=== PATIENT | male | born 1980 | race Two or more races ===

== ENCOUNTER 2024-04-05 10:08 | Inpatient (IN) | payer MEDICAID, SELFPAY ==
--- NOTE | 2024-04-05 10:41 | XR_ITS ---
Examination: CT abdomen and pelvis without contrast. Coronal 3-D reconstructions. Sagittal 2-D reconstructions. Date and time of exam:April 05, 2024 1153 hours INDICATIONS: Generalized abdominal pain nausea vomiting and diarrhea beginning 3 days ago CTDI: vol (mGy): 9.74 DLP: (mGycm): 634 Technique: Axial images of the abdomen have been obtained, 3 mm slice thickness Intravenous contrast material has not been administered. Low dose protocols were performed. One or more of the following dose reduction techniques were used; automated exposure control, adjustment of the mA and/or KV according to patient size, use of iterative reconstruction technique. Findings: No focal liver or splenic lesions No gallstones No pancreatic mass No renal or ureteral calculi Air distended colon with no pericecal inflammatory change Multiple fluid distended small bowel loops No diverticulitis Contracted urinary bladder Moderate osteopenia IMPRESSION: Colonic ileus Multiple fluid distended small bowel loops, consider early small bowel obstruction, recommend Gastrografin small bowel series follow-up
--- NOTE | 2024-04-05 10:42 | PD.EDRME ---
Rapid Medical Screening Exam RME Arrival date/time: 04/05/24 10:08 43-year-old male with no known medical history presents to the emergency room with a chief complaint of 10 out of 10 generalized abdominal pain and tenderness, nausea, vomiting, diarrhea x 2 days I have greeted and performed a focused initial assessment of this patient. A comprehensive ED assessment and evaluation of the patient, analysis of all test results, and completion of the medical decision making process will be conducted by additional ED providers. Chief Complaint: Abdominal Pain Vital signs reviewed by provider: Yes
[2024-04-05 10:54] VITALS: BP 132/83; PULSE 69; RESP 18; TEMP 36.6; O2SAT 100; BMI 31.6
[2024-04-05 11:26] LABS: Basophils % (Auto) 0 % (0-2.5); Eosinophils # (Auto) 0.1 Thou/mm3 (0.0-0.5); Eosinophils % (Auto) 1 % (0-10); Hematocrit 44.5 % (41.0-53.0); Immature Granulocytes % (Auto) 0 % (0-0); Immature Granulocytes Auto 0.02 Thou/mm3 (0.00-0.00); Lymphocytes # (Auto) 1.2 Thou/mm3 (1.0-4.8); Lymphocytes % (Auto) 19 % (10-50); Mean Corpuscular HGB Conc 33.7 g/dl (31.0-37.0); Mean Corpuscular Hemoglobin 30.6 pg (25.0-35.0); Mean Corpuscular Volume 91 fL (80-100); Monocytes # (Auto) 0.3 Thou/mm3 (0.0-0.8); Monocytes % (Auto) 5 % (0-12); Neutrophils # (Auto) 4.8 Thou/mm3 (1.8-7.7); Neutrophils % (Auto) 75 % (37-80); Nucleated Red Blood Cell % 0 /100 WBC (0); Platelet Count 242 Thou/mm3 (140-440); RDW Standard Deviation 43.5 fL (35.1-43.9); White Blood Count 6.4 Thou/mm3 (3.8-10.6)
[2024-04-05 11:45] LABS: Alanine Aminotransferase 21 U/L (10-49); Albumin, Serum 5.1 gm/dL (3.5-5.0); Albumin/Globulin Ratio 1.9 (1.2-2.2); Alkaline Phosphatase 86 U/L (46-116); Anion Gap 7 (7-16); Aspartate Amino Transferase 14 U/L (0-34); BUN/Creatinine Ratio 16 Ratio (12-20); Bilirubin,Total 0.6 mg/dL (0.3-1.2); Blood Urea Nitrogen 13 mg/dL (9-23); Calcium 9.7 mg/dL (8.3-10.6); Calcium (Corrected) 9.7 mg/dL (8.5-10.1); Carbon Dioxide 28.8 mMol/L (20.0-31.0); Chloride 102 mMol/L (98-107); Creatinine (Component) 0.8 mg/dL (0.6-1.3); Estimated Creatinine Clearance 131.3 mL/min (>60); Globulin 2.7 gm/dL (2.3-3.5); Glucose 117 mg/dL (74-106); Lipase 26 U/L (12-53); Osmolality,Calculated 276 (275-295); Potassium 3.8 mMol/L (3.4-5.1); Sodium 138 mMol/L (136-145); Total Protein 7.8 gm/dL (5.7-8.2); eGFR > 60 See Note
[2024-04-05] MEDS: ONDANSETRON ODT 4 MG TABRAP PO (11:46)
[2024-04-05] MEDS: HYDROcodone/APAP 5/325 TABLET 1 TAB PO (11:47)
[2024-04-05 14:29] LABS: Collection Type, Urine Clean Catch
[2024-04-05 14:46] LABS: Bilirubin,Urine Negative (Negative); Blood,Urine Negative (Negative); Clarity,Urine Clear (Clear/Hazy); Color,Urine Yellow (Lt Yel-Yel); Glucose, Urine Trace (Negative); Ketones,Urine Trace (Negative); Leukocyte Esterase,Urine Negative (Negative); Nitrite,Urine Negative (Negative); Protein,Urine 1+ (Neg - Trace); RBC,Urine 3 /hpf (0-3); Specific Gravity,Urine 1.042 (1.001-1.035); Squamous Epithelial Cell,Urine 1 /hpf (0-5); WBC,Urine 4 /hpf (0-5)
[2024-04-05] MEDS: SODIUM CHLORIDE 0.9% 1000 ML 1,000 ML 999 ML IV (15:55)
[2024-04-05] MEDS: HYDROmorphone INJ 2 MG/ML VIAL 1 MG IVP (15:55)
[2024-04-05] MEDS: KETOROLAC INJ 30 MG/ML VIAL IVP (15:56)
[2024-04-05] MEDS: ONDANSETRON INJ 2 MG/ML INJ 2 ML 4 MG IV (15:56)
[2024-04-05 15:58] VITALS: BP 155/93; PULSE 58; RESP 16; TEMP 36.9; O2SAT 100
--- NOTE | 2024-04-05 16:18 | PD.SURCONS ---
HPI Consult details Consult date: 04/05/24 Reason for consultation narrative: Patient was seen in consultation for bowel obstruction at the request of the ER physician History of present illness: History of present illness revealed that the patient has had vomiting and severe diarrhea for the past 3 days and generalized abdominal pain. He even had 2 bowel movements this morning. Meds Home Medications and Allergies Home Medications ?Medication ?Instructions ?Recorded ?Confirmed ?Type albuterol sulfate 90 mcg/actuation 2 puff inhalation Q6H PRN 08/26/22 02/08/23 History aerosol inhaler Shortness Of Breath Allergies Allergy/AdvReac Type Severity Reaction Status Date / Time cashew nut Allergy Severe HIVES Verified 08/26/22 11:53 egg Allergy Severe HIVES Verified 08/26/22 11:53 pistachio nut Allergy Severe HIVES Verified 08/26/22 11:53 Exam Vital Signs Temp Pulse Resp BP Pulse Ox O2 Del Method 98.5 F 58 L 16 155/93 H 100 Room Air 04/05/24 15:58 04/05/24 15:58 04/05/24 15:58 04/05/24 15:58 04/05/24 15:58 04/05/24 15:58 Routine Abdominal Exam Comments: Abdominal examination showed no distention. Results Results: Laboratory Laboratory Narrative: Laboratory results are within normal limits Results: Imaging Imaging narrative: CT scan showed a dilated loops of small bowel as well as large amounts of gas in the anterior colon which was read as colonic ileus Assessment & Plan Additional Assessment Additional comments: Impression: The patient does not have any bowel obstruction. He seems to be having gastroenteritis Plan Plan we shall treat him as gastroenteritis but no surgical condition exist now
--- NOTE | 2024-04-05 16:47 | EDNOTE_ITS ---
ED Abdominal Pain RME/HPI General Chief Complaint: Abdominal Pain Stated complaint: ABD PAIN X3 DAYS, N/V/D Time seen by provider: 04/05/24 11:34 Arrival date/time: 04/05/24 10:08 RME / HPI RME / HPI narrative: 04/05/24 10:08 43-year-old male with no known medical history presents to the emergency room with a chief complaint of 10 out of 10 generalized abdominal pain and tenderness, nausea, vomiting x 2 days I have greeted and performed a focused initial assessment of this patient. A comprehensive ED assessment and evaluation of the patient, analysis of all test results, and completion of the medical decision making process will be conducted by additional ED providers. This section includes all my notes and documentations, including HPI, PE, and ED course.? Srinivas Cox MD HPI: 43-year-old male here with about 24-hour history of severe abdominal pain and vomiting. No hematemesis or coffee-ground emesis. No diarrhea. With decreased bowel movements and decreased bowel sounds. Had appendectomy in the past. No obvious fever. No other complaints. ROS: All negative except as documented in HPI. Physical Exam: General:? Alert and oriented.? In severe pain. Eyes:? Conjunctivae and lids clear.? ENT:? No nasal congestion.? Neck:? Supple.? Heart:? RRR.? Lungs:? No respiratory distress.? Good air movement.? No rhonchi, wheezing, rales.?? Abdomen: Equivocal distention and guarding and rigidity. Decreased bowel sounds. Back: No CVA tenderness. Skin:? Warm and dry.?? Neuro:? Alert and oriented X 3.?? I reviewed all diagnostic test results. My review of the abdominal CT report is SBO. Blood tests and urine tests?unremarkable. At this point, diagnoses include?small bowel obstruction Treatment here included?IV fluid and Zofran and Dilaudid. Significant improvement not noted. I discussed the case with our surgeon and our hospitalist.? About the presentation and exam and diagnostics and treatments here.? And need of further care in the hospital.? Will accept the patient. Srinivas Cox MD Related Data Home Medications ?Medication ?Instructions ?Recorded ?Confirmed albuterol sulfate 90 mcg/actuation 2 puff inhalation Q6H PRN 08/26/22 02/08/23 aerosol inhaler Shortness Of Breath Previous Rx's ?Medication ?Instructions ?Recorded albuterol sulfate 90 mcg/actuation 2 inh inhalation QID PRN shortness 08/26/22 aerosol inhaler of breath or wheezing #8.5 grams montelukast 10 mg tablet 10 mg PO QHS 30 days #30 tabs 08/26/22 (Singulair) Allergies Allergy/AdvReac Type Severity Reaction Status Date / Time cashew nut Allergy Severe HIVES Verified 08/26/22 11:53 egg Allergy Severe HIVES Verified 08/26/22 11:53 pistachio nut Allergy Severe HIVES Verified 08/26/22 11:53 Review of Systems Review of Systems Systems Reviewed: All systems reviewed, normal except as documented Past Medical History Past Medical History CARDIAC: Positive Hypertension; Negative Congestive Heart Failure RESPIRATORY: Positive Asthma; Negative Chronic Obstructive Pulmonary Disease (COPD) GENITOURINARY: Negative Renal Disease ENDOCRINE: Negative Diabetes Mellitus Type 1 or Diabetes Mellitus Type 2 PSYCHO/SOCIAL: Positive Anxiety Social History SMOKING STATUS: Never smoker ED Exam Narrative Physical exam: As noted in HPI Course Quality Measures none Orders Category Date Time Status COVID-19 Screening Questionnaire NOW Care 04/05/24 14:51 Active Decision to Admit X1 Care 04/05/24 14:51 Completed NPO NOW Care 04/05/24 14:23 Active Saline [Insert IV] NOW Care 04/05/24 14:23 Active Consult to General Surgery Stat Cons 04/05/24 14:21 Ordered Diet NPO (NOW) Diet 04/05/24 14:[address] abdomen pelvis wo con Stat Exams 04/05/24 10:41 Completed CBC Stat Lab 04/05/24 10:56 Completed CMP [Comprehensive Metabolic Panel] Stat Lab 04/05/24 10:56 Completed Lipase Stat Lab 04/05/24 10:56 Completed UA [Urinalysis] Stat Lab 04/05/24 13:58 Completed Urine Culture Stat Lab 04/05/24 13:58 Received HYDROcodone*/APAP 5/325 [[place] 5/325] Med 04/05/24 10:41 Discontinued 1 tab PO X1 ONE HYDROmorphone INJ [Dilaudid Inj] Med 04/05/24 14:23 Discontinued 1 mg IVP X1 ONE Ketorolac Inj [Toradol Inj] Med 04/05/24 14:23 Discontinued 30 mg IVP X1 ONE Ondansetron Inj [Zofran Inj] Med 04/05/24 14:23 Discontinued 4 mg IV X1 ONE Ondansetron Odt [Zofran Odt] Med 04/05/24 10:41 Discontinued 4 mg PO X1 ONE Sodium Chloride 0.9% 1000 ml [Ns] 1,000 ml Med 04/05/24 14:23 Discontinued IV 999 mls/hr Vital Signs Vital signs: Vital Signs Temperature 97.9 F 04/05/24 10:54 Pulse Rate 69 04/05/24 10:54 Respiratory Rate 18 04/05/24 10:54 Blood Pressure 132/83 H 04/05/24 10:54 Pulse Oximetry (%) 100 04/05/24 10:54 Oxygen Delivery Method Room Air 04/05/24 10:54 Pulse ox is 100% on room air which is adequate. Abdominal Pain MDM Patient data External records reviewed:: [facility] previous records (I reviewed admission on 02/08/2023 through 02/10/2023) Clinical information provided by:: patient Social determinants that could affect healthcare access:: none Patient has the following chronic illnesses:: Hypertension, asthma How is presenting disease/condition affected by chronic disease/condition?: uneffected by Evaluation data The following diagnostics were reviewed and interpreted by me:: lab results and radiology exam(s) Lab and/or radiology exams considered but not ordered:: None Interpretation Summary: SBO Medications / Prescriptions Medications or Prescriptions considered but not ordered:: None Medication administrations:: Medication Administration History Acetaminophen (Acetaminophen 325 Mg Tablet) 650 mg PO Q6H PRN PRN Reason: Fever >101.5 Stop: 05/05/24 15:34 Heparin Sodium (Porcine) (Heparin Sod Inj 5000 Unit/Ml Vial) 5,000 unit SC Q8HR [facility] Stop: 04/19/24 21:59 Sodium Chloride (Ns) 1,000 mls @ 120 mls/hr IV .Q8H20M [facility] Stop: 05/05/24 15:44 Last Admin: 04/05/24 17:09 Dose: 120 mls/hr Documented By: Ondansetron HCl (Ondansetron Inj 2 Mg/Ml Inj 2 Ml) 4 mg IV Q4H PRN; Protocol PRN Reason: NAUSEA OR VOMITING Stop: 05/05/24 15:34 Oxycodone/Acetaminophen (Oxycodone/Apap 5/325 Tablet) 1 tab PO Q6H PRN PRN Reason: Pain Scale 4-6 (Moderate) Stop: 04/10/24 15:34 Discontinued Medications Hydrocodone Bitart/Acetaminophen (Hydrocodone/Apap 5/325 Tablet) 1 tab PO X1 ONE Stop: 04/05/24 10:42 Last Admin: 04/05/24 11:47 Dose: 1 tab Documented By: Hydromorphone HCl (Hydromorphone Inj 2 Mg/Ml Vial) 1 mg IVP X1 ONE Stop: 04/05/24 14:24 Last Admin: 04/05/24 15:55 Dose: 1 mg Documented By: LISBETH Sodium Chloride (Ns) 1,000 mls @ 999 mls/hr IV .Q1H1M ONE Stop: 04/05/24 15:23 Last Infusion: 04/05/24 17:12 Dose: Infused Documented By: Admin: 04/05/24 15:55 Dose: 999 mls/hr Documented By: LISBETH Ketorolac Tromethamine (Ketorolac Inj 30 Mg/Ml Vial) 30 mg IVP X1 ONE Stop: 04/05/24 14:24 Last Admin: 04/05/24 15:56 Dose: 30 mg Documented By: LISBETH Ondansetron HCl (Ondansetron Odt 4 Mg Tabrap) 4 mg PO X1 ONE; Protocol Stop: 04/05/24 10:42 Last Admin: 04/05/24 11:46 Dose: 4 mg Documented By: Ondansetron HCl (Ondansetron Inj 2 Mg/Ml Inj 2 Ml) 4 mg IV X1 ONE; Protocol Stop: 04/05/24 14:24 Last Admin: 04/05/24 15:56 Dose: 4 mg Documented By: LISBETH Patient given IV fluids, zofran, toradol, dilaudid, norco in the ER. Consultations Consultation(s) initiated? (list below): Yes Consultation #1 (Physician, Specialty, Details): I spoke with general surgeon Dr. Harkins. Discussed patients PMHx, HPI, ED course, exam findings, labs, and radiology results. Will come evaluate the patient in the ED. Consultation #2 (Physician, Specialty, Details): I spoke with resident Dr. Villagomez working with Dr. Morris regarding admission. Discussed patients PMHx, HPI, ED course, exam findings, labs, and radiology results. The hospitalist agree to accept the patient for admission. Diagnosis Differential diagnosis abdominal pain: calculus of kidney, constipation, diverticulitis, gastroenteritis, pancreatitis and small bowel obstruction Most likely diagnosis given after review of the tests above:: Small bowel obstruction Admission Indicated Admission indicated?: indicated Explain why admission is indicated or not indicated:: SBO Admission Request Was there a request for admission?: Yes Admission Attestation Admission request attestation: Discussed case with Hospitalist service regarding admission. Discussed patients ED course, exam findings, labs, and radiology results. The Hospitalist [agrees,declines] to accept the patient for admission. Disposition Plan Disposition Plan: Admit Discharge Plan Plan Patient Disposition: Admit Acute Care w/in Hospital Problem List Clinical Impression: SBO (small bowel obstruction)
[2024-04-05] MEDS: SODIUM CHLORIDE 0.9% 1000 ML 1,000 ML 120 ML IV ×2 (17:09→22:20)
[2024-04-05 17:48] VITALS: BMI 31.6
--- NOTE | 2024-04-05 17:48 | ESHP_ITS ---
Documentation for date of: 04/05/24 [facility] History of Present Illness History of present illness: Mr. Barnhart is a 43-year-old male with past medical history significant for asthma and remote history of hypertension which is controlled by dietary and lifestyle modification presents to the ED complaining of nausea vomiting and abdominal pain. 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 Patient states that for the last 3 days he has been having 4-5 episodes of watery diarrhea with abdominal cramping and is passing gas. Patient describes this pain to be diffuse all over his abdomen cramping-like rating it 7 out of 10 . patient states he is also experiencing nausea and vomiting 3 times a day and last time vomited this morning. Patient denies any similar episodes previously, denies eating any unusual new foods, denies any travel history and denies any recent sick contact. Patient states that he is a regular meth user and uses meth several times a day. His last meth was used 2 days ago and his preferred method is smoking meth. ED course: Initial vitals are stable CBC, CMP and urine analysis are unremarkable. Images: CT of abdomen/pelvis shows Multiple fluid distended small bowel loops In the ED patient received [place] x 1, Dilaudid x 1, Toradol x 1 and Zofran x 1 PMH: Asthma PSH: Appendectomy SH: Denies tobacco, smokes marijuana every other day, smokes methamphetamine daily several times a day, denies cocaine and denies alcohol Home meds: Albuterol inhaler which he has been using daily Review of Systems Review of Systems Systems Reviewed: All systems reviewed, normal except as documented Exam Vital Signs Temp Pulse Resp BP Pulse Ox O2 Del Method 98.5 F 58 L 16 155/93 H 100 Room Air 04/05/24 15:58 04/05/24 15:58 04/05/24 15:58 04/05/24 15:58 04/05/24 15:58 04/05/24 15:58 Narrative Exam GENERAL: A&Ox3 . Awake, Not in acute distress NEURO: no focal neurological deficits HEENT: Atraumatic, Normocephalic. mucous membranes moist. Eyes open, symmetrical, & clear HEART: Normal Heart Sounds LUNGS: Clear to auscultation with no wheezing or crackles. ABDOMEN: soft, favian distended, favian diffuse tenderness to palpation, bowel sounds heard, no guarding SKIN: No Rash or ecchymoses EXTREMITIES: No edema, tenderness, able to move all 4 extremities, pedal pulses palpated Results: Labs 04/06/24 04:30 04/06/24 04:30 Labs: Short CBC 04/05/24 Range/Units 10:56 WBC 6.4 (3.8-10.6) Thou/mm3 Hgb 15.0 (13.5-16.0) g/dL Hct 44.5 (41.0-53.0) % Plt Count 242 (140-440) Thou/mm3 BMP 04/05/24 10:56 Sodium 138 Potassium 3.8 Chloride 102 Carbon Dioxide 28.8 BUN 13 Creatinine 0.8 Glucose 117 H Calcium 9.7 Liver Function 04/05/24 Range/Units 10:56 Total Bilirubin 0.6 (0.3-1.2) mg/dL AST 14 (0-34) U/L ALT 21 (10-49) U/L Alkaline Phosphatase 86 (46-116) U/L Albumin 5.1 H (3.5-5.0) gm/dL Urine 04/05/24 Range/Units 13:58 Urine Color Yellow (Lt Yel-Yel) Urine Clarity Clear (Clear/Hazy) Urine pH 6.0 (5.0-7.0) Ur Specific [place] 1.042 H (1.001-1.035) Urine Protein 1+ A (Neg - Trace) Urine Glucose (UA) Trace (Negative) Quality Measures Quality Measures none Medications Home Medications and Allergies Home Medications ?Medication ?Instructions ?Recorded ?Confirmed ?Type albuterol sulfate 90 mcg/actuation 2 puff inhalation Q6H PRN 08/26/22 04/05/24 History aerosol inhaler Shortness Of Breath Allergies Allergy/AdvReac Type Severity Reaction Status Date / Time cashew nut Allergy Severe HIVES Verified 08/26/22 11:53 egg Allergy Severe HIVES Verified 08/26/22 11:53 pistachio nut Allergy Severe HIVES Verified 08/26/22 11:53 Visit Medications Acetaminophen (Acetaminophen 325 Mg Tablet) 650 mg PO Q6H PRN PRN Reason: Fever >101.5 Stop: 05/05/24 15:34 Heparin Sodium (Porcine) (Heparin Sod Inj 5000 Unit/Ml Vial) 5,000 unit SC Q8HR [facility] Stop: 04/19/24 21:59 Sodium Chloride (Ns) 1,000 mls @ 120 mls/hr IV .Q8H20M [facility] Stop: 05/05/24 15:44 Last Admin: 04/05/24 17:09 Dose: 120 mls/hr Ondansetron HCl (Ondansetron Inj 2 Mg/Ml Inj 2 Ml) 4 mg IV Q4H PRN; Protocol PRN Reason: NAUSEA OR VOMITING Stop: 05/05/24 15:34 Oxycodone/Acetaminophen (Oxycodone/Apap 5/325 Tablet) 1 tab PO Q6H PRN PRN Reason: Pain Scale 4-6 (Moderate) Stop: 04/10/24 15:34 Discontinued Medications Hydrocodone Bitart/Acetaminophen (Hydrocodone/Apap 5/325 Tablet) 1 tab PO X1 ONE Stop: 04/05/24 10:42 Last Admin: 04/05/24 11:47 Dose: 1 tab Hydromorphone HCl (Hydromorphone Inj 2 Mg/Ml Vial) 1 mg IVP X1 ONE Stop: 04/05/24 14:24 Last Admin: 04/05/24 15:55 Dose: 1 mg Sodium Chloride (Ns) 1,000 mls @ 999 mls/hr IV .Q1H1M ONE Stop: 04/05/24 15:23 Last Infusion: 04/05/24 17:12 Dose: Infused Ketorolac Tromethamine (Ketorolac Inj 30 Mg/Ml Vial) 30 mg IVP X1 ONE Stop: 04/05/24 14:24 Last Admin: 04/05/24 15:56 Dose: 30 mg Ondansetron HCl (Ondansetron Odt 4 Mg Tabrap) 4 mg PO X1 ONE; Protocol Stop: 04/05/24 10:42 Last Admin: 04/05/24 11:46 Dose: 4 mg Ondansetron HCl (Ondansetron Inj 2 Mg/Ml Inj 2 Ml) 4 mg IV X1 ONE; Protocol Stop: 04/05/24 14:24 Last Admin: 04/05/24 15:56 Dose: 4 mg Assessment & Plan Plan Mr. Barnhart is a 43-year-old male with past medical history significant for asthma and remote history of hypertension which is controlled by dietary and lifestyle modification presents to the ED complaining of nausea vomiting and abdominal pain. #Abdominal pain likely secondary to #Viral Gastritis #Intractable vomiting # Possible SBO/small bowel ileus -Patient states that for the last 3 days he has been having 4-5 episodes of watery diarrhea with abdominal cramping and is passing gas. -Patient describes this pain to be diffuse all over his abdomen cramping-like rating it 7 out of 10 . -patient states he is also experiencing nausea and vomiting 3 times a day and last time vomited this morning Plan: -Maintenance fluids ordered for IV hydration -Unlikely patient has SBO since patient is passing gas and having watery diarrhea however ED consulted general surgery and was placed n.p.o. -Awaiting general surgery recommendations and will advance patient's diet if patient is able to tolerate oral diet tomorrow -Tylenol 650 mg as needed -Zofran as needed #Asthma -Patient uses albuterol inhaler daily currently is not in respiratory distress or COPD exacerbation -Scheduled DuoNebs every 6 hours ordered #Substance abuse disorder -Patient endorses almost daily use of methamphetamine and marijuana -Watchful observation for now for symptoms of withdrawal -Patient is counseled Health Maintenance Disposition: Admitted to observation at [facility] DVT Prophylaxis: Heparin 5000 units SC Q8 hrs GI Prophylaxis: Pantoprozol-40 IV/PO Qday Diet: Cardiac or Diabetic Diet, carbohydrate consistent Lines: Peripheral lines Code status: DNR/DNI Assessment and plan discussed with my senior resident Dr. Tolentino & attending physician Dr. Alexandra Villagomez (PGY-1)- Internal medicine resident Attending Provider Attestation/Addendum I reviewed labs, imaging, EKG, home medications and prior available records. Face to face evaluation was performed by me. I have personally examined the patient and discussed assessment and plan with the IM team. I reviewed the resident note and agree with the plan with exceptions as below. SBO Acute gastroenteritis Marijuana abuse Methamphetamine abuse Asthma without exacerbation Make the patient n.p.o., IV maintenance fluids, consulted general surgery Monitor electrolytes Albuterol as needed Counseled the patient regarding the importance of stopping drug abuse
[2024-04-05 19:12] VITALS: PULSE 63; RESP 20; O2SAT 98
[2024-04-05] MEDS: ALBUTEROL/IPRATROPIUM (Duoneb) RT SOL 3 ML NEBU INH (19:12)
[2024-04-05 20:00] VITALS: BP 121/67; PULSE 54; RESP 18; TEMP 36.4; O2SAT 95
[2024-04-06] VITALS (7 sets, daily range): BP systolic 108–150; BP diastolic 66–92; PULSE 61–77; RESP 16–20; TEMP 36.4–36.8; O2SAT 92–100
[2024-04-06] MEDS: ALBUTEROL/IPRATROPIUM (Duoneb) RT SOL 3 ML NEBU INH ×3 (02:32→11:49)
[2024-04-06 06:04] LABS: Basophils % (Auto) 0 % (0-2.5); Eosinophils # (Auto) 0.1 Thou/mm3 (0.0-0.5); Eosinophils % (Auto) 2 % (0-10); Hematocrit 39.7 % (41.0-53.0); Hemoglobin 13.7 g/dL (13.5-16.0); Immature Granulocytes % (Auto) 0 % (0-0); Immature Granulocytes Auto 0.01 Thou/mm3 (0.00-0.00); Lymphocytes # (Auto) 1.6 Thou/mm3 (1.0-4.8); Lymphocytes % (Auto) 29 % (10-50); Mean Corpuscular HGB Conc 34.5 g/dl (31.0-37.0); Mean Corpuscular Hemoglobin 31.4 pg (25.0-35.0); Mean Corpuscular Volume 91 fL (80-100); Monocytes # (Auto) 0.3 Thou/mm3 (0.0-0.8); Monocytes % (Auto) 6 % (0-12); Neutrophils # (Auto) 3.5 Thou/mm3 (1.8-7.7); Neutrophils % (Auto) 63 % (37-80); Nucleated Red Blood Cell % 0 /100 WBC (0); Platelet Count 232 Thou/mm3 (140-440); RDW Standard Deviation 43.9 fL (35.1-43.9); Red Blood Count 4.37 Miln/mm3 (4.50-5.90); White Blood Count 5.5 Thou/mm3 (3.8-10.6)
[2024-04-06] MEDS: SODIUM CHLORIDE 0.9% 1000 ML 1,000 ML 120 ML IV (06:10)
[2024-04-06 06:43] LABS: Alanine Aminotransferase 17 U/L (10-49); Albumin, Serum 4.3 gm/dL (3.5-5.0); Albumin/Globulin Ratio 1.9 (1.2-2.2); Alkaline Phosphatase 67 U/L (46-116); Anion Gap 6 (7-16); Aspartate Amino Transferase 11 U/L (0-34); BUN/Creatinine Ratio 11 Ratio (12-20); Bilirubin,Total 0.6 mg/dL (0.3-1.2); Blood Urea Nitrogen 8 mg/dL (9-23); Carbon Dioxide 28.8 mMol/L (20.0-31.0); Chloride 106 mMol/L (98-107); Creatinine (Component) 0.7 mg/dL (0.6-1.3); Estimated Creatinine Clearance 150.1 mL/min (>60); Globulin 2.3 gm/dL (2.3-3.5); Glucose 99 mg/dL (74-106); Magnesium 1.8 mg/dL (1.6-2.6); Osmolality,Calculated 279 (275-295); Phosphorous 3.2 mg/dL (2.4-5.1); Potassium 4.1 mMol/L (3.4-5.1); Sodium 141 mMol/L (136-145); Total Protein 6.6 gm/dL (5.7-8.2); eGFR > 60 See Note
--- NOTE | 2024-04-06 11:49 | ESDS_ITS ---
Planned Discharge Date 04/06/24 DS: Providers Provider Date of admission: 04/06/24 07:45 Primary care physician: Physician No Primary/Family Admitting Provider: Hubert Morris MD Attending Provider on Admission: Hubert Morris MD Consults: 04/05/24 14:21 Consult to General Surgery Stat Comment: SBO Consulting Provider: Raghu Fraser Attending Provider on DC: Nasir Villagomez MD Discharging Provider: Nasir Villagomez MD DS: Diagnosis Problem List Completed Was Problem List Reviewed/Reconciled?: Yes Hospital Course Hospital Course Hospital course: Mr. Barnhart is a 43-year-old male with past medical history significant for asthma and remote history of hypertension which is controlled by dietary and lifestyle modification presents to [facility] ED on 04/05/2024 complaining of nausea vomiting, diarrhea and abdominal pain. Patient was complaining of watery diarrhea with abdominal cramping and is passing gas. In the ED general surgery was consulted for possible small bowel obstruction which was ruled out per CT of abdomen pelvis as well as physical exam findings. Patient denied recent travel history or sick contacts, patient states he is a regular meth user and uses meth several times a day. His last meth was used 2 days ago and his preferred method is smoking meth. Patient's initial vitals CBC CMP and urinalysis were all unremarkable, patient was admitted to observation and during hospitalization patient was started on loperamide and maintenance IV fluids as a treatment for viral gastroenteritis. Patient is hemodynamically stable with resolution of symptoms and is able to tolerate oral diet and is ready to be discharged home. Images CT of abdomen/pelvis shows Multiple fluid distended small bowel loops Discharge Recommendations Patient is recommended to follow-up with primary care physician in regards to recent hospitalization Patient is recommended to continue with loperamide for management of diarrhea as it is unlikely an infectious cause and more likely viral gastroenteritis, recommend to continue with per oral hydration/adequate fluid intake. In case of worsening symptoms please turn to the emergency room. Hospitalization Diagnosis #Acute gastroenteritis #Marijuana abuse #Methamphetamine abuse #Asthma without exacerbation Assessment and plan discussed with my attending physician Dr. Alexandra Villagomez (PGY-1)- Internal medicine resident Time Spent with Patient Time attestation: Total time spent providing and/or coordinating discharge services: Exam Vital Signs Temp Pulse Resp BP Pulse Ox O2 Del Method 97.5 F 72 16 150/92 H 99 Room Air 01/09/25 08:00 04/06/24 08:00 04/06/24 08:00 04/06/24 08:00 04/06/24 08:00 04/06/24 08:00 Discharge Plan Plan Patient Disposition: HOME (Self Care) Care Plan Goals: Patient is recommended to follow-up with primary care physician in regards to recent hospitalization Patient is recommended to continue with loperamide for management of diarrhea as it is unlikely an infectious cause and more likely viral gastroenteritis, recommend to continue with per oral hydration/adequate fluid intake. In case of worsening symptoms please turn to the emergency room. Prescriptions/Referrals Prescriptions/Med Rec: New loperamide 2 mg capsule 2 mg PO Q6H PRN (Reason: loose stool) Qty: 14 0RF Continued albuterol sulfate 90 mcg/actuation HFA aerosol inhaler 2 puff inhalation Q6H PRN (Reason: Shortness Of Breath) Referrals: No Primary/Family,Physician [Primary Care Provider] - Patient/Caregiver Discharge Instructions Print Language: Cuban Stand Alone Forms: Vaddio Award Info., Patient Portal Info Letter Discharge Order Discharge Orders: Discharge (Routine); Ordered 04/06/24 Ordered By: Janet Llamas Quality Discharge Quality Measures VTE prophylaxis MD Attestestation MD Attestation I reviewed labs, imaging, EKG, home medications and prior available records. Face to face evaluation was performed by me. I have personally examined the patient and discussed assessment and plan with the IM team. I reviewed the resident note and agree with the plan with exceptions as below. SBO, resolved Small bowel ileus, resolved Acute gastroenteritis Marijuana abuse Methamphetamine abuse Asthma without exacerbation Small bowel obstruction pattern is likely due to small bowel ileus secondary to acute gastroenteritis which is likely viral in etiology Loperamide as needed for diarrhea Monitor electrolytes: Stable Albuterol as needed for asthma Counseled the patient regarding the importance of stopping drug abuse
== END 2024-04-06 15:28 | disposition home or self-care (01) | DRG 249 ==
LOC: SERX 14:52 → SERHOLD 18:02 → S3EX 04-06 07:07 → SERHOLD 04-06 07:26 → S3EX 04-06 07:27
PROVIDERS: Nurse Practitioner Family; Admitting Provider Student in an Organized Health Care Education/Training Program; Emergency Provider Emergency Medicine; Visit Provider Student in an Organized Health Care Education/Training Program
DX: A08.4 Viral intestinal infection, unspecified (principal); F12.10 Cannabis abuse, uncomplicated; K56.7 Ileus, unspecified; F15.10 Other stimulant abuse, uncomplicated; I10 Essential (primary) hypertension; F41.9 Anxiety disorder, unspecified; J45.909 Unspecified asthma, uncomplicated; Z66 Do not resuscitate; Z91.012 Allergy to eggs; Z91.018 Allergy to other foods
CPT/HCPCS: 36415; 74176; 80053; 81001; 83690; 83735; 84100; 85025; 87086; 87811; 94640; 94664; A9270; G0378; J1885; J2405; J3490; J7030; Q0162

== ENCOUNTER 2024-10-22 09:04 | Emergency (ER) | payer MEDICAID, SELFPAY ==
[2024-10-22 09:05] VITALS: BMI 35.4
--- NOTE | 2024-10-22 09:21 | PD.EDMALE ---
ED Male Genitalurinary RME/HPI General Chief complaint: Shortness of Breath/Dyspnea Stated complaint: CAN'T BREATH XHOURS; HX ASTHMA Time Seen by Provider: 10/22/24 09:20 Arrival date/time: 10/22/24 09:04 Limitations: no limitations RME / HPI RME / HPI Narrative: DR. TAPIA MAIN ED EVALUATION: Related Data Home Medications ?Medication ?Instructions ?Recorded ?Confirmed albuterol sulfate 90 mcg/actuation 2 puff inhalation Q6H PRN 08/26/22 04/05/24 aerosol inhaler Shortness Of Breath Previous Rx's ?Medication ?Instructions ?Recorded loperamide 2 mg capsule 2 mg PO Q6H PRN loose stool #14 04/06/24 caps Allergies Allergy/AdvReac Type Severity Reaction Status Date / Time cashew nut Allergy Severe HIVES Verified 10/22/24 09:07 egg Allergy Severe HIVES Verified 10/22/24 09:07 pistachio nut Allergy Severe HIVES Verified 10/22/24 09:07 Review of Systems Review of Systems Systems Reviewed: All systems reviewed, normal except as documented Past Medical History Past Medical History CARDIAC: Positive Hypertension RESPIRATORY: Positive Asthma PSYCHO/SOCIAL: Positive Anxiety Social History SMOKING STATUS: Never smoker SUBSTANCE USE: methamphetamine SUBSTANCE LAST USED: hours (ago) ALCOHOL: Never ED Exam General Limitations: Present no limitations General appearance: Present alert and in no apparent distress Head Head exam: Present atraumatic, normocephalic and normal inspection Eye Eye exam: Present normal appearance, PERRL and EOMI ENT ENT exam: Present normal exam, normal oropharynx and mucous membranes moist Neck Neck exam: Present normal inspection, full ROM and trachea midline Chest Chest inspection: Present normal inspection and symmetric chest wall rise Respiratory Respiratory exam: Present normal lung sounds bilaterally Cardiovascular Cardiovascular exam: Present regular rate, normal rhythm and normal heart sounds Abdominal Exam Abdominal exam: Present soft and normal bowel sounds Extremities Exam Extremities exam: Present normal inspection and full ROM Back Exam Back exam: Present normal inspection and full ROM Neurological Exam Neurological exam: Present alert, oriented X3 and CN II-XII intact Psychiatric Psychiatric exam: Present normal affect and normal mood Skin Skin exam: Present warm, dry, intact and normal color Course Quality Measures none Urogenital - Male MDM Narrative MDM Narrative:: Va Harrison am scribing for and in the presence of Dr. Tapia. Patient data External records reviewed:: [facility] previous records Clinical information provided by:: patient Social determinants that could affect healthcare access:: substance use (methamphetamine use) Patient has the following chronic illnesses:: Asthma and hypertension (controlled with diet and lifestyle modifications). No allergies to medications reported. How is presenting disease/condition affected by chronic disease/condition?: uneffected by Evaluation data Lab and/or radiology exams considered but not ordered:: none Medications / Prescriptions Medications or Prescriptions considered but not ordered:: none Medication administrations:: see above if any Diagnosis Urogenital Male Differential Diagnosis: other Discharge Plan Prescriptions/Referrals Prescriptions/Med Rec: No Action albuterol sulfate 90 mcg/actuation HFA aerosol inhaler 2 puff inhalation Q6H PRN (Reason: Shortness Of Breath) loperamide 2 mg capsule 2 mg PO Q6H PRN (Reason: loose stool) Qty: 14 0RF Patient/Caregiver Discharge Instructions Print Language: Frisian
--- NOTE | 2024-10-22 09:42 | EKG_ITS ---
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1980 Requested By: Colleen Nicholson Order Number: [id number] Reading MD: Colleen Nicholson Measurements Intervals [place] Rate: 81 P: 76 CO: 159 QRS: -39 QRSD: 109 T: 32 QT: 356 QTc: 415 Interpretive Statements SINUS RHYTHM LEFT AXIS DEVIATION [QRS AXIS < -30] LOW QRS VOLTAGE IN PRECORDIAL LEADS [QRS DEFLECTION < 1.0 mV IN CHEST LEADS] INCOMPLETE RIGHT BUNDLE BRANCH BLOCK [90+ ms QRS DURATION, TERMINAL R IN V1/V2, 40+ ms S IN I/aVL/V4/V5/V6] POSSIBLE LATERAL MYOCARDIAL INFARCTION , OF INDETERMINATE AGE [30 ms Q WAVE IN I/aVL/V5/V6] Compared to ECG 05/01/2021 21:31:26 Left-axis deviation now present Low QRS voltage now present Incomplete right bundle-branch block now present Myocardial infarct finding now present /store/S0/[id number]/ecg/[id number].pdf
[2024-10-22 09:45] VITALS: BP 119/82; PULSE 72; RESP 19; TEMP 36.6; O2SAT 96
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
[2024-10-22 09:51] VITALS: PULSE 70
[2024-10-22] MEDS: ALBUTEROL RT 2.5 MG/0.5 ML NEBU 15 MG INH (09:51)
[2024-10-22] MEDS: IPRATROPIUM RT 0.5 MG/ 2.5 ML NEBU 1.5 MG INH (09:53)
[2024-10-22 09:59] VITALS: PULSE 78; RESP 18; O2SAT 100
[2024-10-22] MEDS: MethylPREDNISolone SOD SUCC 62.5 MG/ML 2ML VIAL 125 MG IM (10:16)
== END 2024-10-22 12:01 | disposition home or self-care (01) ==
PROVIDERS: Emergency Provider Emergency Medicine; PCP Family Medicine
DX: J45.901 Unspecified asthma with (acute) exacerbation (principal); I45.10 Unspecified right bundle-branch block
CPT/HCPCS: 93005; 94644; 96372; 99283; J2919